=== PATIENT | male | born 1940 | race Caucasian/White ===

== ENCOUNTER 2021-03-23 21:08 | Inpatient (IN) | payer OTHER, MEDICARE ==
[~2021-03-23] VITALS: Ht 165.1 cm; Wt 72.6 kg
[2021-03-23 21:43] LABS: HEMOGLOBIN 13.8 gm/dl (14.0-17.5); RED BLOOD COUNT 4.35 M/UL (4.20-5.50); WHITE BLOOD COUNT 7.2 K/UL (4.5-11.0)
[2021-03-23 22:03] LABS: BUN/CREATININE RATIO 19 (0-10)
[2021-03-24] MEDS ORDERED: LIORESAL TAB 1010 MG PO (09:42)
[2021-03-24] MEDS ORDERED: OMEPRAZOLE20 M1 PO (09:43)
[2021-03-24] MEDS ORDERED: CARDURA XL8 MG PO (09:43)
[2021-03-24] MEDS ORDERED: GABAPENTIN600 MG PO (09:43)
[2021-03-24] MEDS ORDERED: MIRALAX17 GM PO (09:44)
[2021-03-24] MEDS ORDERED: TRAMADOL HCL50 MG PO (09:44)
[2021-03-25] MEDS ORDERED: ASPIRIN CHEWABL81 MG PO (09:02)
[2021-03-29] MEDS ORDERED: VALIUM 2 MG TAB2 MG PO (11:48)
== END 2021-03-29 17:01 | disposition home health service (06) | DRG 184 ==
LOC: ER1 21:08 → CDU 03-24 01:47 → PROG CARE 03-24 03:29 → M/S 03-25 10:26
PROVIDERS: Emergency Medicine; ADMIT Surgery
DX: S22.43XA Multiple fractures of ribs, bilateral, initial encounter for closed fracture (principal); S22.20XA Unspecified fracture of sternum, initial encounter for closed fracture; Z20.822 Contact with and (suspected) exposure to COVID-19; V43.52XA Car driver injured in collision with other type car in traffic accident, initial encounter; Y92.410 Unspecified street and highway as the place of occurrence of the external cause; F43.10 Post-traumatic stress disorder, unspecified; F41.9 Anxiety disorder, unspecified; G47.00 Insomnia, unspecified; G62.9 Polyneuropathy, unspecified; K21.9 Gastro-esophageal reflux disease without esophagitis; Z79.82 Long term (current) use of aspirin; Z79.899 Other long term (current) drug therapy
CPT/HCPCS: 70450; 71045; 71260; 72125; 73610; 73630; 80053; 80307; 81001; 82550; 82553; 83690; 83874; 84484; 85025; 85610; 85730; 93005; 94760; 96374; 96375; 96376; 97116; 97116-GP-CQ; 97161; 97530; 97530-GP-CQ; 99284; G0480; J1170; J2270; J2405; Q9967; U0002